=== PATIENT | female | born 1975 | race Caucasian/White ===

== ENCOUNTER 2016-11-11 19:17 | Emergency (ER) | payer OTHER ==
--- NOTE | 2016-11-11 19:39 | EDM.PDOC ---
ED HPI - General Stated Complaint: thinks having a miscarrage started light spotting yestreday morning got heavier today with lower abd cramping about 5pm with passing clots and heavier bleeding mild abd cramping neg NV weakness mendy saw pcp today told to come back in 3days for blood work no complications with first pregnacy unsure of blood type Time Seen by Provider: 11/11/16 19:28 Source of Information: Reports: Patient History Limitations: Reports: No limitations - History of Present Illness Symptom Onset Date: 11/10/16 Symptom Onset Time: 08:00 Location, : Reports: pelvic Severity: mild Associated Symptoms: Reports: vaginal bleeding, vaginal clots, vaginal tissue - Related Data Allergies/ADRs: Allergies Allergy/AdvReac Type Severity Reaction Status Date / Time No Known Allergies Allergy Verified 11/11/16 19:47 Home Meds: Home Meds . [No Known Home Meds] 11/11/16 [History] Past Medical History - Past Health History Medical/Surgical History: Denies Medical/Surgical History HEENT History: Reports: None Cardiovascular History: Reports: None Respiratory History: Reports: None Gastrointestinal History: Reports: None Genitourinary History: Reports: None COVER MARKER History: Reports: None LMP (Approximate): other (aug 29 lmp) Endocrine/Metabolic History: Reports: None Hematologic History: Reports: None. Denies: Anemia, Anticoagulation therapy Social & Family History - Tobacco Use Smoking Status *Q: Never Smoker ED ROS GENERAL - Review of Systems Review Of Systems: See Below Constitutional: Denies: fever, chills, malaise, weakness, fatigue, diaphoresis HEENT: Reports: No symptoms Respiratory: Reports: no symptoms Cardiovascular: Reports: No symptoms Endocrine: Reports: no symptoms GI/Abdominal: Reports: No symptoms. Denies: Nausea, Vomiting : Denies: dysuria, frequency, hematuria, irregular menses, urgency Musculoskeletal: Reports: no symptoms Neurological: Reports: no symptoms Psychiatric: Reports: No symptoms Hematologic/Lymphatic: Denies: anemia, easy bleeding, easy bruising ED EXAM - Physical Exam Exam: See Below Exam Limited By: No limitations General Appearance: alert, WD/WN, no apparent distress Eye Exam: bilateral eye: PERRL Neck: full range of motion Respiratory/Chest: no respiratory distress, lungs clear, normal breath sounds, no accessory muscle use Cardiovascular: regular rate, rhythm, no edema, no gallop, no JVD, no murmur, no rub, other GI/Abdominal: normal bowel sounds, soft, non tender, no organomegaly. No: distended, guarding (neg pelvic rock ), rigid, rebound, tender, abnormal bowel sounds:, hepatomegaly, splenomegaly (Female) Exam: Products of conception, tissue present in cervix/vagina, Vaginal bleeding, Other (no able to visulize cervical os 2nd amount blood and clots ). No: Cervix motion tenderness Back Exam: normal inspection. No: CVA tenderness (L), CVA tenderness (R) Extremities: normal inspection, normal range of motion Neurological: alert, oriented, CN II-XII intact Psychiatric: normal affect Skin Exam: Warm, Dry, Intact, Normal color Course - Vital Signs Text/Narrative:: pt instructed to f/u with pcp apt on for reexam and labs also s/s need to return to ER with verbal understanding Last Recorded V/S: Last Vital Signs Temp 35.8 C 11/11/16 19:25 Pulse 85 11/11/16 19:25 Resp 16 11/11/16 19:25 BP 108/66 11/11/16 19:25 Pulse Ox 98 11/11/16 19:25 - Orders/Labs/Meds Orders: Active Orders 24 hr Category Date Time Status [facility] [place]REF] Stat Lab 11/11/16 20:00 Received Labs: Laboratory Tests 11/11/16 11/11/16 Range/Units 20:00 20:00 WBC 11.2 H (4.0-10.0) x10^3/uL RBC 4.12 (4.00-5.50) x10^6/uL Hgb 13.1 (12.0-16.0) g/dL Hct 38.5 (33.0-47.0) % MCV 93.4 H (78.0-93.0) fL MCH 31.8 (26.0-32.0) pg MCHC 34.0 (32.0-36.0) g/dL RDW Coeff of Miranda 12.0 (10.0-15.0) % Plt Count 240 (130-400) x10^3/uL Neut % (Auto) 73.0 (50.0-80.0) % Lymph % (Auto) 19.1 L (25.0-50.0) % Dickey % (Auto) 5.2 (2.0-11.0) % Eos % (Auto) 2.4 (0.0-4.0) % Baso % (Auto) 0.3 (0.2-1.2) % Blood Type A POSITIVE Rhogam Indicated No Departure - Departure Time of Disposition: 20:05 Disposition: Home, Self-Care 01 Condition: good Clinical Impression: Complete Instructions: Miscarriage Referrals: PCP,Unknown [Primary Care Provider] - Forms: ED Department Discharge Additional Instructions: follow up with your primary provider or sooner if needed return to ER if increased pain in the belly or pelvis or vagina ,heavier or increased bleeding , fever Nausea , vomiting - Problem List & Annotations (1) Miscarriage SNOMED Code(s): 47985132 Code(s): O03.9 - COMPLETE OR UNSP SPONTANEOUS WITHOUT COMPLICATION Status: Acute - My Orders Last 24 Hours: My Active Orders 11/11/16 20:00 [facility] [REF] Stat - Assessment/Plan Last 24 Hours: My Active Orders 11/11/16 20:00 [facility] [REF] Stat
[2016-11-11 19:47] VITALS: BP 108/66
[2016-11-11 20:08] LABS: BASOPHILS PERCENT AUTO 0.3 % (0.2-1.2); EOSINOPHILS PERCENT AUTO 2.4 % (0.0-4.0); HEMATOCRIT 38.5 % (33.0-47.0); HEMOGLOBIN 13.1 g/dL (12.0-16.0); LYMPHOCYTES PERCENT AUTO 19.1 % (25.0-50.0); MEAN CORPUSCULAR HEMOGLOBIN 31.8 pg (26.0-32.0); MEAN CORPUSCULAR VOLUME 93.4 fL (78.0-93.0); MONOCYTES PERCENT AUTO 5.2 % (2.0-11.0); RED BLOOD CELL COUNT 4.12 x10^6/uL (4.00-5.50)
== END 2016-11-11 20:45 | disposition home or self-care (01) ==
LOC: VM.ED 19:17
DX: O03.9 Complete or unspecified spontaneous abortion without complication (principal)
CPT/HCPCS: 36415; 84702; 85025; 86900; 86901; 99284